=== PATIENT | female | born 1975 | race Caucasian/White ===

== ENCOUNTER 2016-08-18 08:40 | Emergency (ER) | payer OTHER ==
--- NOTE | 2016-08-18 10:02 | DIAGNOSTIC IMAGING REPORT ---
PROCEDURE: XR CHEST 1 VIEW INDICATION: CHEST PAIN TECHNIQUE: Portable AP view 09:05 a.m. COMPARISON: None. FINDINGS: Lungs are clear. Heart and mediastinum are normal. Thorax is normal. IMPRESSION: 1. Negative chest.
--- NOTE | 2016-08-18 10:35 | DIAGNOSTIC IMAGING REPORT ---
PROCEDURE: CTA THORAX WITH CONTRAST INDICATION: SHORTNESS OF BREATH TECHNIQUE: 85 ml of Isovue 370 was injected intravenously and axial images were obtained of the chest with 3D sagittal and coronal MIP reconstructions. COMPARISON: None. FINDINGS: Suboptimal study secondary to heterogeneous pulmonary arterial tree opacification secondary to slightly delayed scan timing. Given this, there is fairly normal opacification of the central pulmonary arteries. Segmental and subsegmental pulmonary arteries are less well evaluated due to heterogeneous opacification. There is minor left posterior lung base atelectatic change. Lungs are otherwise clear. No effusion or pneumothorax. Patent airway. Thoracic aorta is normal caliber with without evidence of dissection flap, aneurysm, or periaortic hematoma. The great vessels demonstrate a normal branching pattern. Heart size is normal. No pericardial effusion. No adenopathy or mediastinal masses. The esophagus is normal in caliber without hiatal hernia. The thyroid gland is normal. Osseous structures are intact. The images obtained of the upper abdomen are normal. IMPRESSION: 1. Suboptimal study secondary to heterogeneous pulmonary arterial tree of ossification, but no large central pulmonary embolus. 2. Clear lungs without evidence of end organ damage such as infarct or effusion. 3. Normal aorta. 4. Findings called to the emergency room.
--- NOTE | 2016-08-18 11:42 | DIAGNOSTIC IMAGING REPORT ---
PROCEDURE: US VENOUS - RIGHT EXT INDICATION: Right lower extremity swelling. Reported history of DVT and pulmonary embolus. Coumadin therapy. TECHNIQUE: Color Doppler duplex imaging of the deep and superficial venous system without and with compression. COMPARISON: None. FINDINGS: Deep and superficial venous system of the right lower extremity is within normal limits. There is no evidence of deep vein thrombosis or superficial thrombophlebitis. IMPRESSION: 1. Negative venous ultrasound of the right lower extremity.
--- NOTE | 2016-08-18 12:42 | ED CLINICAL REPORT ---
Clinical Report - Physicians/Mid Levels [facility] [address] [place] [address] 08/18/2016 8:42 Patient: FANNY MCKEON Time Seen: 08:40. Arrived- By private vehicle. Historian- patient. CPT: ER phys charges level 4 plus (#[id number]). HISTORY OF PRESENT ILLNESS Chief Complaint: DYSPNEA. 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 The dyspnea is described as moderate and is worsened by walking and exertion and is improved by rest. No cough, fever, sweating episodes, wheezing or anxiety. No dizziness or palpitations. She has had dyspnea on exertion. She has had moderate, pressure-like right-sided chest pain. (Has been taking anticoagulant. No known reason yet for clotting problem.). Similar symptoms previously: As bad. Diagnosis: (PE 2 months ago.). Recent medical care: Not recently seen/assessed. REVIEW OF SYSTEMS No sore throat, nasal discharge, sinus drainage, nausea or vomiting. No abdominal pain, diarrhea, black stools, fainting episodes or difficulty with urination. No excessive urination, skin rash or enlarged lymph nodes. Swollen , tender right leg noted last week. All systems otherwise negative, except as recorded above. PAST HISTORY Deep venous thrombosis. One episode of pulmonary embolism with associated deep venous thrombosis treated (Unclear reason for clotting. Treeated with eloquis.). Anxiety Reaction. Pulmonary Embolism. Opiate addiction. ADDITIONAL SURGERIES: Bone spur right foot. Tonsillectomy. Medications: Suboxone Sublingual. LORazepam Oral. Minocycline Hcl Oral. Elequis. Allergies: Codeine. Sulfa Antibiotics. SOCIAL HISTORY Former smoker. Occasional alcohol use. History of drug use: marijuana. ADDITIONAL NOTES The nursing notes have been reviewed. PHYSICAL EXAM Vital Signs: 08/18/2016 08:55 BP: 131/95. HR: 68. RR: 16. O2 saturation: 100%. Temp: 98.3 F. Pain level now: 7/10. Appearance: Alert. Anxious. Patient in mild distress. Eyes: Eyes normal inspection. ENT: Nose normal. Pharynx normal. Neck: Normal inspection. CVS: Normal heart rate and rhythm. Heart sounds normal. Pulses normal. (chest tender to palpation , right anterior.). Respiratory: No respiratory distress. Breath sounds normal. Abdomen: Soft and nontender. Back: Normal inspection. Skin: Skin warm. Normal skin color. No rash. Extremities: Extremities exhibit normal ROM. No calf tenderness. No lower extremity edema. Neuro: Oriented X 3. No motor deficit. No sensory deficit. LABS, X-RAYS, AND EKG EKG: Normal EKG. Chest X-ray: Normal Chest X-Ray. Chest CT: No acute disease. (Gallbladder is full.). Chest CT performed with contrast. The study was independently viewed by me, interpreted by the radiologist and discussed with the radiologist. Laboratory Tests: CBC w Diff: (KENDAL: 08/18/2016 08:52) ( MsgRcvd 08/18/2016 09:25) Final results Test Result Flag Units (Reference) WHITE BLOOD COUNT 13.1 H K/uL (4.5-11.5) RED BLOOD COUNT 5.25 H M/uL (4.00-5.20) HEMOGLOBIN 14.9 gm/dL (12.0-16.0) HEMATOCRIT 44.4 % (36.0-46.0) MEAN CELL VOLUME 85 fL (80-100) MEAN CORPUSCULAR HGB 28 pg (26-34) MEAN CORPUSCULAR HGB CONC 34 g/dL (31-37) RED CELL DISTRIBUTION WIDTH 12.7 % (11.6-14.8) PLATELET COUNT 304 K/uL (150-400) NEUTROPHIL % 78.4 H % (50-75) LYMPH % 15.6 L % (25-40) MONO % 5.5 % (3-14) EOSINOPHIL % 0.1 % (0-4) BASOPHIL % 0.4 % (0-2) PT with INR: (KENDAL: 08/18/2016 08:52) ( MsgRcvd 08/18/2016 09:26) Final results Test Result Flag Units (Reference) INR 1.2 (0.8-1.2) Low Intensity Therapy: INR 1.5-2.0 PT range 18.5-23.1Mod.Intensity Therapy: INR 2.0-3.0 PT range 23.1-31.5High Intensity Therapy: INR 2.5-3.5 PT range 27.4-35.5High Intensity Therapy 2: INR 3.0-4.0 PT range 31.5-39.3 D-DIMER QUANTITATIVE < 0.27 L ug/mLFEU (0.27-0.52) The primary value of this quantitative assay relates toits negative predictive value (i.e. exclusion) of pulmonaryembolism/deep vein thrombosis/DIC.Elevated levels of d-dimer may also occur with:, age, cancer, inflammation, liver disease,post-op, infection, hematoma, coronary disease, peripheralarteriopathy, bleeding disorders and thrombolytic treatment.Results should be correlated with other clinical andradiological data.Testing Methodology: Latex Immunoassay BNP: (KENDAL: 08/18/2016 08:52) ( [facility] 08/18/2016 09:48) Final results Test Result Flag Units (Reference) B-TYPE NATRIURETIC PEPTIDE 16.0 pg/ml (5-100) CHEM 13 PANEL: (KENDAL: 08/18/2016 08:52) ( [facility] 08/18/2016 09:35) Final results Test Result Flag Units (Reference) GLUCOSE 108 mg/dL (70-110) BUN 7 mg/dL (7-18) CREATININE 0.9 mg/dL (0.6-1.3) Estimated GFR >60 mL/min Estimated GFR- >60 mL/min Note: Persistent reduction over 3 months in eGFR<60 mL/min/1.73 m2 defines CKD. Patients with eGFR values>=60 mL/min/1.73 m2 may also have CKD if evidence ofpersistent proteinuria. Additional information may be foundat www.kidney.org. SODIUM 139 mmol/L (136-145) POTASSIUM 3.9 mmol/L (3.5-5.1) CHLORIDE 103 mmol/L (98-107) CARBON DIOXIDE 24 mmol/L (21-32) CALCIUM 9.0 mg/dL (8.5-10.1) TOTAL PROTEIN 7.4 g/dL (6.4-8.2) ALBUMIN 3.9 g/dL (3.3-5.0) BILIRUBIN, TOTAL 0.6 mg/dL (0.0-1.0) ALKALINE PHOSPHATASE 128 H U/L (46-116) AST (SGOT) 12 L U/L (15-37) ALT (SGPT) 17 U/L (12-78) MAGNESIUM 1.7 L mg/dL (1.8-2.4) CPK 64 U/L (24-260) TROPONIN I <0.05 L ng/mL (0.00-1.5) TROPONIN REFERENCE RANGE:<0.1 NEGATIVE0.1-1.5 INDETERMINANT>1.5 POSITIVE . PROGRESS AND PROCEDURES Course of Care: 09:24 08/18/16. Care transferred to Dr Fernandez due to change of shift/ R MD Kory demerol 12.;5 mg IV Ativan 0.5 mg IV Percocet 2 po Patient is stable. Physical exam findings are improved. Symptoms much better. Patient/family counseled. Disposition: Discharged. Condition: stable and improved. CLINICAL IMPRESSION Acute dyspnea Anxiety reaction with hyperventilation. Recent diagnosis of PE. Mild elevation of liver enzymes. Musculoskeletal back pain. INSTRUCTIONS No strenuous activity. Rest. Do not work for three days until better. Warnings: Further evaluation is necessary. SEDATIVE MEDICATION: You were given sedative medication during your visit. Do not drive or operate dangerous machinery. GENERAL WARNINGS: Return or contact your physician immediately if your condition worsens or changes unexpectedly, if not improving as expected, or if other problems arise. Your Current Medications: CONTINUE TAKING THE FOLLOWING MEDICATIONS: Elequis*. LORazepam Oral. Minocycline Hcl Oral. Suboxone Sublingual. Follow-up: Follow up with your doctor in three days. Call for an appointment. Understanding of the discharge instructions verbalized by patient. Discharge instructions reviewed with and understanding was verbalized by spouse. (Electronically signed by Riley Fernandez MD 08/18/2016 23:12)
--- NOTE | 2016-08-18 12:42 | ED CLINICAL REPORT ---
Clinical Report - Physicians/Mid Levels [facility] [address] [place] [address] 08/18/2016 8:42 Patient: FANNY MCKEON Time Seen: 08:40. Arrived- By private vehicle. Historian- patient. CPT: ER phys charges level 4 plus (#[id number]). HISTORY OF PRESENT ILLNESS Chief Complaint: DYSPNEA. 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 The dyspnea is described as moderate and is worsened by walking and exertion and is improved by rest. No cough, fever, sweating episodes, wheezing or anxiety. No dizziness or palpitations. She has had dyspnea on exertion. She has had moderate, pressure-like right-sided chest pain. (Has been taking anticoagulant. No known reason yet for clotting problem.). Similar symptoms previously: As bad. Diagnosis: (PE 2 months ago.). Recent medical care: Not recently seen/assessed. REVIEW OF SYSTEMS No sore throat, nasal discharge, sinus drainage, nausea or vomiting. No abdominal pain, diarrhea, black stools, fainting episodes or difficulty with urination. No excessive urination, skin rash or enlarged lymph nodes. Swollen , tender right leg noted last week. All systems otherwise negative, except as recorded above. PAST HISTORY Deep venous thrombosis. One episode of pulmonary embolism with associated deep venous thrombosis treated (Unclear reason for clotting. Treeated with eloquis.). Anxiety Reaction. Pulmonary Embolism. Opiate addiction. ADDITIONAL SURGERIES: Bone spur right foot. Tonsillectomy. Medications: Suboxone Sublingual. LORazepam Oral. Minocycline Hcl Oral. Elequis. Allergies: Codeine. Sulfa Antibiotics. SOCIAL HISTORY Former smoker. Occasional alcohol use. History of drug use: marijuana. ADDITIONAL NOTES The nursing notes have been reviewed. PHYSICAL EXAM Vital Signs: 08/18/2016 08:55 BP: 131/95. HR: 68. RR: 16. O2 saturation: 100%. Temp: 98.3 F. Pain level now: 7/10. Appearance: Alert. Anxious. Patient in mild distress. Eyes: Eyes normal inspection. ENT: Nose normal. Pharynx normal. Neck: Normal inspection. CVS: Normal heart rate and rhythm. Heart sounds normal. Pulses normal. (chest tender to palpation , right anterior.). Respiratory: No respiratory distress. Breath sounds normal. Abdomen: Soft and nontender. Back: Normal inspection. Skin: Skin warm. Normal skin color. No rash. Extremities: Extremities exhibit normal ROM. No calf tenderness. No lower extremity edema. Neuro: Oriented X 3. No motor deficit. No sensory deficit. LABS, X-RAYS, AND EKG EKG: Normal EKG. Chest X-ray: Normal Chest X-Ray. Chest CT: No acute disease. (Gallbladder is full.). Chest CT performed with contrast. The study was independently viewed by me, interpreted by the radiologist and discussed with the radiologist. Laboratory Tests: CBC w Diff: (KENDAL: 08/18/2016 08:52) ( MsgRcvd 08/18/2016 09:25) Final results Test Result Flag Units (Reference) WHITE BLOOD COUNT 13.1 H K/uL (4.5-11.5) RED BLOOD COUNT 5.25 H M/uL (4.00-5.20) HEMOGLOBIN 14.9 gm/dL (12.0-16.0) HEMATOCRIT 44.4 % (36.0-46.0) MEAN CELL VOLUME 85 fL (80-100) MEAN CORPUSCULAR HGB 28 pg (26-34) MEAN CORPUSCULAR HGB CONC 34 g/dL (31-37) RED CELL DISTRIBUTION WIDTH 12.7 % (11.6-14.8) PLATELET COUNT 304 K/uL (150-400) NEUTROPHIL % 78.4 H % (50-75) LYMPH % 15.6 L % (25-40) MONO % 5.5 % (3-14) EOSINOPHIL % 0.1 % (0-4) BASOPHIL % 0.4 % (0-2) PT with INR: (KENDAL: 08/18/2016 08:52) ( MsgRcvd 08/18/2016 09:26) Final results Test Result Flag Units (Reference) INR 1.2 (0.8-1.2) Low Intensity Therapy: INR 1.5-2.0 PT range 18.5-23.1Mod.Intensity Therapy: INR 2.0-3.0 PT range 23.1-31.5High Intensity Therapy: INR 2.5-3.5 PT range 27.4-35.5High Intensity Therapy 2: INR 3.0-4.0 PT range 31.5-39.3 D-DIMER QUANTITATIVE < 0.27 L ug/mLFEU (0.27-0.52) The primary value of this quantitative assay relates toits negative predictive value (i.e. exclusion) of pulmonaryembolism/deep vein thrombosis/DIC.Elevated levels of d-dimer may also occur with:, age, cancer, inflammation, liver disease,post-op, infection, hematoma, coronary disease, peripheralarteriopathy, bleeding disorders and thrombolytic treatment.Results should be correlated with other clinical andradiological data.Testing Methodology: Latex Immunoassay BNP: (KENDAL: 08/18/2016 08:52) ( [facility] 08/18/2016 09:48) Final results Test Result Flag Units (Reference) B-TYPE NATRIURETIC PEPTIDE 16.0 pg/ml (5-100) CHEM 13 PANEL: (KENDAL: 08/18/2016 08:52) ( [facility] 08/18/2016 09:35) Final results Test Result Flag Units (Reference) GLUCOSE 108 mg/dL (70-110) BUN 7 mg/dL (7-18) CREATININE 0.9 mg/dL (0.6-1.3) Estimated GFR >60 mL/min Estimated GFR- >60 mL/min Note: Persistent reduction over 3 months in eGFR<60 mL/min/1.73 m2 defines CKD. Patients with eGFR values>=60 mL/min/1.73 m2 may also have CKD if evidence ofpersistent proteinuria. Additional information may be foundat www.kidney.org. SODIUM 139 mmol/L (136-145) POTASSIUM 3.9 mmol/L (3.5-5.1) CHLORIDE 103 mmol/L (98-107) CARBON DIOXIDE 24 mmol/L (21-32) CALCIUM 9.0 mg/dL (8.5-10.1) TOTAL PROTEIN 7.4 g/dL (6.4-8.2) ALBUMIN 3.9 g/dL (3.3-5.0) BILIRUBIN, TOTAL 0.6 mg/dL (0.0-1.0) ALKALINE PHOSPHATASE 128 H U/L (46-116) AST (SGOT) 12 L U/L (15-37) ALT (SGPT) 17 U/L (12-78) MAGNESIUM 1.7 L mg/dL (1.8-2.4) CPK 64 U/L (24-260) TROPONIN I <0.05 L ng/mL (0.00-1.5) TROPONIN REFERENCE RANGE:<0.1 NEGATIVE0.1-1.5 INDETERMINANT>1.5 POSITIVE . PROGRESS AND PROCEDURES Course of Care: 09:24 08/18/16. Care transferred to Dr Fernandez due to change of shift/ R MD Kory demerol 12.;5 mg IV Ativan 0.5 mg IV Percocet 2 po Patient is stable. Physical exam findings are improved. Symptoms much better. Patient/family counseled. Disposition: Discharged. Condition: stable and improved. CLINICAL IMPRESSION Acute dyspnea Anxiety reaction with hyperventilation. Recent diagnosis of PE. Mild elevation of liver enzymes. Musculoskeletal back pain. INSTRUCTIONS No strenuous activity. Rest. Do not work for three days until better. Warnings: Further evaluation is necessary. SEDATIVE MEDICATION: You were given sedative medication during your visit. Do not drive or operate dangerous machinery. GENERAL WARNINGS: Return or contact your physician immediately if your condition worsens or changes unexpectedly, if not improving as expected, or if other problems arise. Your Current Medications: CONTINUE TAKING THE FOLLOWING MEDICATIONS: Elequis*. LORazepam Oral. Minocycline Hcl Oral. Suboxone Sublingual. Follow-up: Follow up with your doctor in three days. Call for an appointment. Understanding of the discharge instructions verbalized by patient. Discharge instructions reviewed with and understanding was verbalized by spouse. (Electronically signed by Riley Fernandez MD 08/18/2016 23:12)
--- NOTE | 2016-08-18 12:42 | ED NURSING NOTES ---
Clinical Report - Nurses [facility] [address] [place] [address] 08/18/2016 8:42 Patient: FANNY MCKEON TRIAGE Triage time 08:45. Acuity: LEVEL 3. Chief Complaint: SHORTNESS OF BREATH and DIFFICULTY BREATHING and (States she feels like when she had a PE. c/o 'an elephant sitting on my chest'. Onset 2 days ago.). SEPSIS SCREEN: Sepsis Screen. Negative (no infection suspected/documented). IHSAN COMA SCORE: [place] Coma Scale: 15- eyes open spontaneously (4); best verbal response- oriented x 4 (5); best motor response- obeys commands (6). --09:08 Oziel Sheldon R.N. 08:55 08/18/16. BP: 131/95 (regular adult cuff) taken on the left arm, while lying. HR: 68. RR: 16. O2 saturation: 100% on room air. Temp: 98.3 F (oral). Pain level now: 08/30. --09:08 Oziel Sheldon R.N. Weight: 129.2 kg stated. Height/Length: 64 inches Per Patient. BMI: 48.9. --09:00 Oziel Sheldon R.N. Medications Elequis. --09:04 Oziel Sheldon R.N. Minocycline Hcl Oral. --09:04 Oziel Sheldon R.N. LORazepam Oral. --09:05 Oziel Sheldon R.N. Suboxone Sublingual. --09:06 Oziel Sheldon R.N. Allergies Codeine. Sulfa Antibiotics. --09:04 Oziel Sheldon R.N. History Arrived by private vehicle. Historian: patient. Accompanied by family. 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 SOCIAL HX: Former smoker, end date 04/2016. Occasional alcohol use. History of occasional drug use: marijuana. ABUSE ASSESSMENT: No report of abuse. --09:08 Oziel Sheldon R.N. PROBLEMS: Anxiety Reaction. Pulmonary Embolism. --09:05 Oziel Sheldon R.N. Opiate addiction. --09:06 Oziel Sheldon R.N. ADDITIONAL SURGERIES: Bone spur right foot. Tonsillectomy. --09:05 Oziel Sheldon R.N. Interventions ID band on patient. To treatment room. --09:08 Oziel Sheldon R.N. NURSING PROGRESS NOTES 08:50 08/18/2016 Site #1 started via IV in the right antecubital space with an 18g angiocath, with aseptic technique and good blood return; one attempt. Blood drawn: rainbow set. Labeled in the presence of the patient and sent to the lab. Saline lock flushed with 10 mL saline. --08:58 Oziel Sheldon R.N. EKG time: (0940). EKG was ordered, performed by a tech and shown to the ED physician. --09:35 Pita Gibbs ER Tech1 10:10 08/18/2016 Demerol (Meperidine HCl) IVP 12.5 mg given over 1 minute(s) via site #1. Allergies verified and confirmed 5 rights. IV patency established. IV site checked: no pain, redness, or swelling. IV flushed thoroughly pre- and post-medication administration. IVP given by RN. --10:12 Oziel Sheldon R.N. 09:30 08/18/16. BP: 126/75. HR: 62. RR: 16. O2 saturation: 100% on nasal cannula at 2 liters/minute. Pain level now: 08/30. --10:53 Oziel Sheldon R.N. 10:15 08/18/16. BP: 123/69. HR: 63. RR: 16. O2 saturation: 100% on nasal cannula at 2 liters/minute. Pain level now: 06/30. --10:54 Oziel Sheldon R.N. 10:30 08/18/16. BP: 117/91. HR: 63. RR: 16. O2 saturation: 100% on nasal cannula at 2 liters/minute. Pain level now: 06/30. --10:56 Oziel Sheldon R.N. 10:30 08/18/2016 Demerol IVP Response: pain is improving. --10:57 Oziel Sheldon R.N. 12:07 08/18/2016 Lorazepam (LORazepam) IVP 0.5 mg given over 1 minute(s) via site #1. Allergies verified, confirmed 5 rights and sedative warning given to the patient. IV patency established. IV site checked: no pain, redness, or swelling. IV flushed thoroughly pre- and post-medication administration. IVP given by RN. --12:09 Oziel Sheldon R.N. 12:07 08/18/2016 Oxycodone-APAP (Oxycodone-Acetaminophen) PO 5/325 mg Tablets 2 tab given. Allergies verified, confirmed 5 rights and sedative warning given to the patient. --12:09 Oziel Sheldon R.N. 11:00 08/18/16. BP: 114/70. HR: 64. RR: 16. O2 saturation: 96% on room air. Pain level now: 08/30. --12:53 Oziel Sheldon R.N. 11:30 08/18/16. BP: 122/67. HR: 71. RR: 16. O2 saturation: 98% on room air. --12:53 Oziel Sheldon R.N. 12:00 08/18/16. BP: 122/67. HR: 67. RR: 16. O2 saturation: 98% on room air. Pain level now: 08/30. --12:55 Oziel Sheldon R.N. DISPOSITION / DISCHARGE 12:57 08/18/2016 Site #1 removed upon discharge. Bandage applied. --13:02 Oziel Sheldon R.N. Departure time: 1300. Condition at departure: improved and stable. No learning barriers present. Discharge instructions provided and reviewed with the patient. Reviewed medication(s). Treatments reviewed. Patient verbalized understanding. Written instructions provided in Greenlandic. The patient was discharged by the physician. She was discharged home and accompanied by spouse. She left the Emergency Department ambulatory and via private vehicle. Spouse driving. --13:02 Oziel Sheldon R.N. 12:45 08/18/16. BP: 120/76. HR: 67. RR: 16. O2 saturation: 97% on room air. Temp: 98.3 F (oral). Pain level now: 06/30. --13:02 Oziel Sheldon R.N. Locked/Released at 08/18/2016 15:11 by Oziel Sheldon R.N.
--- NOTE | 2016-08-18 12:42 | ED ORDER SUMMARY ---
..... Patient: FANNY MCKEON OrderSheet [facility] VisitID: [id number] [place] [address] 41y, F Registration Date/Time: 08/18/2016 ORDER SHEET Weight: 129.2 kg (stated) Allergies: Codeine, Sulfa Antibiotics GENERAL ORDERS: Chest 1V Urgent (08:54 08/18/2016 Alok CANTU) (Ack 8:55 Jules) (8:58 JSimbeck R.N.) Demi Chef (Continuous) (08:08/18/2016 lAok CANTU) (8:58 JSimbeck R.N.) Cardiac Panel Stat (08:08/18/2016 Alok CANTU) (Ack 8:55 Jerryner) (8:58 JSimbeck R.N.) BNP Urgent (08:08/18/2016 Alok CANTU) (Ack 8:55 Jules) (8:58 JSimbeck R.N.) D-Dimer Urgent (08:08/18/2016 Alok CANTU) (Ack 8:55 Jules) (8:58 JSimbeck R.N.) PT with INR Urgent (08:08/18/2016 Alok CANTU) (Ack 8:55 Terirner) (8:58 JSimbeck R.N.) Oxygen (2 L/min) (NC) (08:08/18/2016 Alok CANTU) (8:58 JSimbeck R.N.) Pulse oximeter (08:08/18/2016 Alok CANTU) (8:58 JSimbeck R.N.) EKG - ER Stat (08:08/18/2016 Alok CANTU) (8:56 KHoerner) US Venous Right Urgent (09:08/18/2016 Luis Miguel CANTU) (Ack 9:22 Jules) (11:03 KHoerner) CTA Thorax w Cont (No) (pending) Urgent (09:08/18/2016 Luis Miguel CANTU) (Ack 9:22 Jules) (9:51 KHoerner) MEDICATION ORDERS: Oxycodone-APAP PO 10/650 mg (NOW) (12:01 08/18/2016 Luis Miguel CANTU) (12:09 Leelee R.N.) IV FLUIDS: IV Saline Lock (08:54 08/18/2016 Alok CANTU) (8:58 Leelee R.N.) Demerol IV 12.5 mg (NOW) (09:47 08/18/2016 Luis Miguel CANTU) (10:12 Leelee R.N.) LORazepam IV 0.5 mg (NOW) (12:01 08/18/2016 Luis Miguel CANTU) (12:09 Leelee R.N.) ORDER SHEET NOTES: [Electronically signed by Oziel Sheldon R.N. (15:11 08/18/2016)] [Electronically signed by Riley Fernandez MD (23:12 08/18/2016)] [Electronically locked/signed by Oziel Sheldon R.N. (15:11 08/18/2016)]
--- NOTE | 2016-08-18 12:42 | ED NURSING NOTES ---
Clinical Report - Nurses [facility] [address] [place] [address] 08/18/2016 8:42 Patient: FANNY MCKEON TRIAGE Triage time 08:45. Acuity: LEVEL 3. Chief Complaint: SHORTNESS OF BREATH and DIFFICULTY BREATHING and (States she feels like when she had a PE. c/o 'an elephant sitting on my chest'. Onset 2 days ago.). SEPSIS SCREEN: Sepsis Screen. Negative (no infection suspected/documented). IHSAN COMA SCORE: [place] Coma Scale: 15- eyes open spontaneously (4); best verbal response- oriented x 4 (5); best motor response- obeys commands (6). --09:08 Oziel Sheldon R.N. 08:55 08/18/16. BP: 131/95 (regular adult cuff) taken on the left arm, while lying. HR: 68. RR: 16. O2 saturation: 100% on room air. Temp: 98.3 F (oral). Pain level now: 08/30. --09:08 Oziel Sheldon R.N. Weight: 129.2 kg stated. Height/Length: 64 inches Per Patient. BMI: 48.9. --09:00 Oziel Sheldon R.N. Medications Elequis. --09:04 Oziel Sheldon R.N. Minocycline Hcl Oral. --09:04 Oziel Sheldon R.N. LORazepam Oral. --09:05 Oziel Sheldon R.N. Suboxone Sublingual. --09:06 Oziel Sheldon R.N. Allergies Codeine. Sulfa Antibiotics. --09:04 Oziel Sheldon R.N. History Arrived by private vehicle. Historian: patient. Accompanied by family. 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 SOCIAL HX: Former smoker, end date 04/2016. Occasional alcohol use. History of occasional drug use: marijuana. ABUSE ASSESSMENT: No report of abuse. --09:08 Oziel Sheldon R.N. PROBLEMS: Anxiety Reaction. Pulmonary Embolism. --09:05 Oziel Sheldon R.N. Opiate addiction. --09:06 Oziel Sheldon R.N. ADDITIONAL SURGERIES: Bone spur right foot. Tonsillectomy. --09:05 Oziel Sheldon R.N. Interventions ID band on patient. To treatment room. --09:08 Oziel Sheldon R.N. NURSING PROGRESS NOTES 08:50 08/18/2016 Site #1 started via IV in the right antecubital space with an 18g angiocath, with aseptic technique and good blood return; one attempt. Blood drawn: rainbow set. Labeled in the presence of the patient and sent to the lab. Saline lock flushed with 10 mL saline. --08:58 Oziel Sheldon R.N. EKG time: (0940). EKG was ordered, performed by a tech and shown to the ED physician. --09:35 Pita Gibbs ER Tech1 10:10 08/18/2016 Demerol (Meperidine HCl) IVP 12.5 mg given over 1 minute(s) via site #1. Allergies verified and confirmed 5 rights. IV patency established. IV site checked: no pain, redness, or swelling. IV flushed thoroughly pre- and post-medication administration. IVP given by RN. --10:12 Oziel Sheldon R.N. 09:30 08/18/16. BP: 126/75. HR: 62. RR: 16. O2 saturation: 100% on nasal cannula at 2 liters/minute. Pain level now: 08/30. --10:53 Oziel Sheldon R.N. 10:15 08/18/16. BP: 123/69. HR: 63. RR: 16. O2 saturation: 100% on nasal cannula at 2 liters/minute. Pain level now: 06/30. --10:54 Oziel Sheldon R.N. 10:30 08/18/16. BP: 117/91. HR: 63. RR: 16. O2 saturation: 100% on nasal cannula at 2 liters/minute. Pain level now: 06/30. --10:56 Oziel Sheldon R.N. 10:30 08/18/2016 Demerol IVP Response: pain is improving. --10:57 Oziel Sheldon R.N. 12:07 08/18/2016 Lorazepam (LORazepam) IVP 0.5 mg given over 1 minute(s) via site #1. Allergies verified, confirmed 5 rights and sedative warning given to the patient. IV patency established. IV site checked: no pain, redness, or swelling. IV flushed thoroughly pre- and post-medication administration. IVP given by RN. --12:09 Oziel Sheldon R.N. 12:07 08/18/2016 Oxycodone-APAP (Oxycodone-Acetaminophen) PO 5/325 mg Tablets 2 tab given. Allergies verified, confirmed 5 rights and sedative warning given to the patient. --12:09 Oziel Sheldon R.N. 11:00 08/18/16. BP: 114/70. HR: 64. RR: 16. O2 saturation: 96% on room air. Pain level now: 08/30. --12:53 Oziel Sehldon R.N. 11:30 08/18/16. BP: 122/67. HR: 71. RR: 16. O2 saturation: 98% on room air. --12:53 Oziel Sheldon R.N. 12:00 08/18/16. BP: 122/67. HR: 67. RR: 16. O2 saturation: 98% on room air. Pain level now: 08/30. --12:55 Oziel Sheldon R.N. DISPOSITION / DISCHARGE 12:57 08/18/2016 Site #1 removed upon discharge. Bandage applied. --13:02 Oziel Sheldon R.N. Departure time: 1300. Condition at departure: improved and stable. No learning barriers present. Discharge instructions provided and reviewed with the patient. Reviewed medication(s). Treatments reviewed. Patient verbalized understanding. Written instructions provided in Uzbek. The patient was discharged by the physician. She was discharged home and accompanied by spouse. She left the Emergency Department ambulatory and via private vehicle. Spouse driving. --13:02 Oziel Sheldon R.N. 12:45 08/18/16. BP: 120/76. HR: 67. RR: 16. O2 saturation: 97% on room air. Temp: 98.3 F (oral). Pain level now: 06/30. --13:02 Oziel Sheldon R.N. Locked/Released at 08/18/2016 15:11 by Oziel Sheldon R.N.
--- NOTE | 2016-08-18 12:42 | ED ORDER SUMMARY ---
..... Patient: FANNY MCKEON OrderSheet [facility] VisitID: [id number] [place] [address] 41y, F Registration Date/Time: 08/18/2016 ORDER SHEET Weight: 129.2 kg (stated) Allergies: Codeine, Sulfa Antibiotics GENERAL ORDERS: Chest 1V Urgent (08:54 08/18/2016 Alok CANTU) (Ack 8:55 Jules) (8:58 JSimbeck R.N.) Test Developer (Continuous) (08:08/18/2016 Alok CANTU) (8:58 JSimbeck R.N.) Cardiac Panel Stat (08:08/18/2016 Alok CANTU) (Ack 8:55 Jerryner) (8:58 JSimbeck R.N.) BNP Urgent (08:08/18/2016 Alok CANTU) (Ack 8:55 Jules) (8:58 JSimbeck R.N.) D-Dimer Urgent (08:08/18/2016 Alok CANTU) (Ack 8:55 Jules) (8:58 JSimbeck R.N.) PT with INR Urgent (08:08/18/2016 Alok CANTU) (Ack 8:55 Terirner) (8:58 JSimbeck R.N.) Oxygen (2 L/min) (NC) (08:08/18/2016 Alok CANTU) (8:58 JSimbeck R.N.) Pulse oximeter (08:08/18/2016 Alok CANTU) (8:58 JSimbeck R.N.) EKG - ER Stat (08:08/18/2016 Alok CANTU) (8:56 KHoerner) US Venous Right Urgent (09:08/18/2016 Luis Miguel CANTU) (Ack 9:22 Jules) (11:03 KHoerner) CTA Thorax w Cont (No) (pending) Urgent (09:08/18/2016 Luis Miguel CANTU) (Ack 9:22 Jules) (9:51 KHoerner) MEDICATION ORDERS: Oxycodone-APAP PO 10/650 mg (NOW) (12:01 08/18/2016 Luis Miguel CANTU) (12:09 Leelee R.N.) IV FLUIDS: IV Saline Lock (08:54 08/18/2016 Alok CANTU) (8:58 Leelee R.N.) Demerol IV 12.5 mg (NOW) (09:47 08/18/2016 Luis Miguel CANTU) (10:12 Leelee R.N.) LORazepam IV 0.5 mg (NOW) (12:01 08/18/2016 Luis Miguel CANTU) (12:09 Leelee R.N.) ORDER SHEET NOTES: [Electronically signed by Oziel Sheldon R.N. (15:11 08/18/2016)] [Electronically signed by Riley Fernandez MD (23:12 08/18/2016)] [Electronically locked/signed by Oziel Sheldon R.N. (15:11 08/18/2016)]
--- NOTE | 2016-08-18 23:12 | ED MAR SUMMARY ---
..... Medication Administration Record [facility] [address] [place] [address] Patient: FANNY MCKEON Visit ID: [id number] 41y, F Weight: 129.2 kg Height/Length: 64 in BMI: 48.9 ALLERGIES: Codeine, Sulfa Antibiotics Given 10:08/18/2016 Oziel Sheldon R.N. Medication Administered: DEMEROL [IVP] (MEPERIDINE HCL), Dose: 12.5 mg IVP over 1 minute(s), Site: #1 right AC. Medication Ordered: Demerol IV 12.5 mg (NOW). Given 12:08/18/2016 Oziel Sheldon R.N. Medication Administered: LORAZEPAM [IVP] (LORAZEPAM), Dose: 0.5 mg IVP over 1 minute(s), Site: #1 right AC. Medication Ordered: LORazepam IV 0.5 mg (NOW). Given 12:08/18/2016 Oziel Sheldon R.N. Medication Administered: OXYCODONE-APAP [PO] (OXYCODONE-ACETAMINOPHEN), Dose: 2 tab 5/325 mg Tablets PO. Medication Ordered: Oxycodone-APAP PO 10/650 mg (NOW).
--- NOTE | 2016-08-18 23:12 | ED DISCHARGE INSTRUCTIONS ---
Patient: FANNY MCKEON General Instructions [facility] VisitID: [id number] [place] [address] 41y, F Registration Date/Time: 08/18/2016 Acute dyspnea Anxiety reaction with hyperventilation. Recent diagnosis of PE. Mild elevation of liver enzymes. Musculoskeletal back pain. INSTRUCTIONS No strenuous activity. Rest. Do not work for three days until better. Warnings: Further evaluation is necessary. SEDATIVE MEDICATION: You were given sedative medication during your visit. Do not drive or operate dangerous machinery. GENERAL WARNINGS: Return or contact your physician immediately if your condition worsens or changes unexpectedly, if not improving as expected, or if other problems arise. Your Current Medications: CONTINUE TAKING THE FOLLOWING MEDICATIONS: Elequis*. LORazepam Oral. Minocycline Hcl Oral. Suboxone Sublingual. Follow-up: Follow up with your doctor in three days. Call for an appointment. Understanding of the discharge instructions verbalized by patient. Discharge instructions reviewed with and understanding was verbalized by spouse. ADDITIONAL INFORMATION Dyspnea (Shortness Of Breath) Shortness of Breath (also known as "Dyspnea") is the sense that you can't catch your breath or can't get enough air. Dyspnea can be caused by many different conditions such as: Acute asthma attack Worsening of emphysema (also called "COPD") -- a lung diseasethat is caused by smoking A mucus plug blocks a large air passage in the lung -- this can occur with emphysema or chronic bronchitis Congestive Heart Failure ("CHF") -- when a weak heart muscle allows excess fluid to collect inthe lungs Panic attacks, anxiety -- fear can cause rapid breathing ("hyperventilation") Pneumonia -- infection in the lung tissue Exposure to toxic fumes or smoke Pulmonary embolus (blood clot to the lung) Based on your visit today, the exact cause of your shortness of breath is not certain. Your tests do not show any of the serious causes of dyspnea. Sometimes, further testing is needed to find out if a serious problem exists. Therefore, it is important for you to watch for any new symptoms or worsening of your condition and follow up with your doctor as directed. Home Care: When your symptoms are better, resume your usual activities. If you smoke, you need to stop. Join a stop-smoking program or ask your doctor for help. Follow Up with your doctor or as advised by our staff. Get Prompt Medical Attention if any of the following occur: Increasing shortness of breath or wheezing Redness, pain or swelling in one leg Swelling in both legs or ankles Unexpected weight gain Chest, arm, shoulder, neck or upper back pain Dizziness, weakness or fainting Palpitations (the sense that your heart is fluttering, beating fast or hard) Fever of 100.4F (38C) or higher, or as directed by your healthcare provider Cough with dark colored or bloody sputum (mucus) Stress Reaction Anxiety is the feeling we all get when we think something bad might happen. It is a normal response to stress and usually causes only a mild reaction. When anxiety becomes more severe, emotions may interfere with daily life. In some cases, you may not even be aware of what it is youre anxious about! During an anxiety reaction, you may feel like you are helpless, nervous, depressed or irritable. Your body may show signs of anxiety in many ways. You may experience dry mouth, shakiness, dizziness, weakness, trouble breathing, chest pressure, headache, nausea, diarrhea, tiredness, inability to sleep or sexual problems. Home Care: 1) Try to locate the sources of stress in your life. They may not be obvious! These may include: -- Daily hassles of life which pile up (traffic jams, missed appointments, car troubles, etc.) -- Major life changes, both good (new baby, job promotion) and bad (loss of job, loss of loved one) -- Overload: feeling that you have too many responsibilities and can't take care of all of them at once -- Feeling helpless, feeling that your problems are beyond what youre able to solve 2) Notice how your body reacts to stress. Learn to listen to your body signals. This will help you take action before the stress becomes severe. 3) When you can, do something about the source of your stress. (Avoid hassles, limit the amount of change that happens in your life at one time and take a break when you feel overloaded). 4) Unfortunately, many stressful situations cannot be avoided. It is necessary to learn HOW TO MANAGE STRESS better. There are many proven methods that will reduce your anxiety. These include simple things like exercise, good nutrition and adequate rest. Also, there are certain techniques that are helpful: relaxation and breathing exercises, visualization, biofeedback and meditation. For more information about this, consult your doctor or go to a local bookstore and review the many books and tapes available on this subject. Follow Up If you feel that your anxiety is not responding to self-help measures, contact your doctor or make an appointment with a counselor. Get Prompt Medical Attention if any of the following occur: -- Your symptoms get worse -- Chest pain or trouble breathing -- Severe headache not relieved by rest and mild pain reliever -- Rapid or irregular heartbeat, fainting Hyperventilation Syndrome Hyperventilation Syndrome is a condition in which you lose control of your breathing. You may find yourself breathing too fast and/or too deep. This can be triggered by pain, anxiety and emotional stress. If hyperventilation continues for more than a few minutes, it can lead to a number of frightening symptoms, such as: Numbness and tingling of the hands, feet and face Clenching of the fingers or toes Dizziness Feeling like you cannot get enough air Chest pains Fainting or feeling like you are going to faint Once these symptoms begin, it is often hard to stop them because they lead to a cycle of more anxiety and more hyperventilation. It is important to understand that this is not a life-threatening condition and it will pass once you are able to relax. Relaxation and stress management methods can be learned and practiced in advance. These can help in the event of a future attack. Home Care: 1) Rest today until feeling back to normal. 2) If symptoms return: Sit or lie down. Remember that what is happening to you is temporary and will pass. Use the relaxation methods you have learned. It is no longer recommended to breathe into a paper bag. Follow Up with your doctor or as directed by our staff if symptoms recur. Get Prompt Medical Attention if any of the following occur: Increasing shortness of breath Fever of 100.0 F (38 C) or higher, or as directed by your healthcare provider Coughing up blood Chest pain that is made worse with each breath Redness, pain or swelling of the leg Ringing in your ears, Severe headache Weakness or fainting You have been given the following additional information: Dyspnea Anxiety Reaction Hyperventilation Syndrome No strenuous activity. Rest. Do not work for three days until better. (Electronically signed by Riley Fernandez MD 08/18/2016 23:12)
--- NOTE | 2016-08-18 23:12 | ED MAR SUMMARY ---
..... Medication Administration Record [facility] [address] [place] [address] Patient: FANNY MCKEON Visit ID: [id number] 41y, F Weight: 129.2 kg Height/Length: 64 in BMI: 48.9 ALLERGIES: Codeine, Sulfa Antibiotics Given 10:08/18/2016 Oziel Sheldon R.N. Medication Administered: DEMEROL [IVP] (MEPERIDINE HCL), Dose: 12.5 mg IVP over 1 minute(s), Site: #1 right AC. Medication Ordered: Demerol IV 12.5 mg (NOW). Given 12:08/18/2016 Oziel Sheldon R.N. Medication Administered: LORAZEPAM [IVP] (LORAZEPAM), Dose: 0.5 mg IVP over 1 minute(s), Site: #1 right AC. Medication Ordered: LORazepam IV 0.5 mg (NOW). Given 12:08/18/2016 Oziel Sheldon R.N. Medication Administered: OXYCODONE-APAP [PO] (OXYCODONE-ACETAMINOPHEN), Dose: 2 tab 5/325 mg Tablets PO. Medication Ordered: Oxycodone-APAP PO 10/650 mg (NOW).
--- NOTE | 2016-08-18 23:13 | ED MED RECONCILIATION SUMMARY ---
Patient: FANNY MCKEON Medication Reconciliation Report [facility] VisitID: [id number] [address] [place] [address] 41y, F Registration Date/Time: 08/18/2016 Weight: 129.2 kg Height/Length: 64 in. BMI: 48.9 ALLERGIES: Codeine, Sulfa Antibiotics The patient's Home Medications are listed below: CONTINUE TAKING THE FOLLOWING MEDICATIONS: Elequis LORazepam Oral Minocycline Hcl Oral Suboxone Sublingual The source(s) of the original Home Medication information: Not obtained. The following Medications were given to the patient in the Emergency Department: Demerol [IVP] IVP 12.5 mg, administered: 08/18/2016 10:10:00 AM Lorazepam [IVP] IVP 0.5 mg, administered: 08/18/2016 12:07:00 PM Oxycodone-APAP [PO] PO 2 tab, administered: 08/18/2016 12:07:00 PM The following Medications were prescribed to the patient: None.
--- NOTE | 2016-08-18 23:13 | ED MED RECONCILIATION SUMMARY ---
Patient: FANNY MCKEON Medication Reconciliation Report [facility] VisitID: [id number] [address] [place] [address] 41y, F Registration Date/Time: 08/18/2016 Weight: 129.2 kg Height/Length: 64 in. BMI: 48.9 ALLERGIES: Codeine, Sulfa Antibiotics The patient's Home Medications are listed below: CONTINUE TAKING THE FOLLOWING MEDICATIONS: Elequis LORazepam Oral Minocycline Hcl Oral Suboxone Sublingual The source(s) of the original Home Medication information: Not obtained. The following Medications were given to the patient in the Emergency Department: Demerol [IVP] IVP 12.5 mg, administered: 08/18/2016 10:10:00 AM Lorazepam [IVP] IVP 0.5 mg, administered: 08/18/2016 12:07:00 PM Oxycodone-APAP [PO] PO 2 tab, administered: 08/18/2016 12:07:00 PM The following Medications were prescribed to the patient: None.
== END 2016-08-18 13:00 | disposition home or self-care (01) ==
LOC: ED SRH 08:40
DX: F41.1 Generalized anxiety disorder (principal); R06.00 Dyspnea, unspecified; I26.99 Other pulmonary embolism without acute cor pulmonale; Z88.2 Allergy status to sulfonamides; M54.9 Dorsalgia, unspecified; R06.4 Hyperventilation; R74.8 Abnormal levels of other serum enzymes; Z79.2 Long term (current) use of antibiotics; Z79.899 Other long term (current) drug therapy; Z87.891 Personal history of nicotine dependence; Z88.5 Allergy status to narcotic agent